=== PATIENT | male | born 1980 | race Caucasian/White ===

== ENCOUNTER 2019-11-17 20:25 | Emergency (ER) | payer OTHER ==
[2019-11-17 20:32] VITALS: BP 164/99
--- NOTE | 2019-11-17 20:38 | ED Physician Documentation ---
PD HPI BACK PAIN - Stated complaint Stated Complaint: BACK PX - Chief complaint Chief Complaint: Back Pain - History obtained from History obtained from: Patient - History of Present Illness Timing - onset: Yesterday Timing - details: Gradual onset, Waxing and waning Pain level now: 6 Location: Right Quality: Pain, Spasm Associated symptoms: No: Fever, Weakness, Numbness, Incontinent of urine Improves with: Rest Worsened by: Movement Recently seen: Not recently seen - Additional information Additional information: c/o right and mid lower back pain radiating to posterior aspect of right proximal thigh. Worse with movement. denies injury. Has had similar episodes before. Moved from [place] few weeks ago. Was seen in an ED in [place] a few months ago for same problem, had xrays at that time. Review of Systems Constitutional: denies: Fever, Chills, Sweats : denies: Unable to Void, Incontinent Skin: denies: Rash Musculoskeletal: reports: Back pain. denies: Neck pain, Extremity pain, Pain with weight bearing Neurologic: denies: Focal weakness, Numbness PD PAST MEDICAL HISTORY - Past Medical History Past Medical History: Yes Cardiovascular: Hypertension, High cholesterol Endocrine/Autoimmune: Type 1 diabetes - Present Medications Home Medications: Ambulatory Orders Medication Instructions Recorded Confirmed Cyclobenzaprine [Flexeril] 10 mg PO TID PRN #20 tablet 11/17/19 Hydrocodone/Acetaminophen 1 - 2 each PO Q6H PRN #14 tablet 11/17/19 [Hydrocodon-Acetaminophen 5-325] - Living Situation Living Arrangement: reports: At home PD ED PE NORMAL - Vitals Vital signs reviewed: Yes - General General: Alert and oriented X 3, No acute distress, Well developed/nourished - Cardiac Cardiac: RRR, No murmur - Respiratory Respiratory: No respiratory distress, Clear bilaterally - Derm Derm: Normal color, Warm and dry, No rash - Extremities Extremities: No tenderness to palpate, Normal ROM s pain, No edema, No calf tenderness / cord - Neuro Neuro: Alert and oriented X 3, No motor deficit, No sensory deficit, Other (2+/4 DTR bilateral patella without clonus) Results - Vitals Vitals: Vital Signs - 24 hr 11/17/19 20:29 Temperature 36.4 C L Heart Rate 78 Respiratory 16 Rate Blood Pressure 164/99 H O2 Saturation 95 Oxygen O2 Source Room air PD MEDICAL DECISION MAKING - ED course Complexity details: considered differential, d/w patient ED course: emergent testing not indicated at this time for this atraumatic, positional LBP with no red flags (no fever, weakness, numbness, difficulty urinating or defecating). Departure - Departure Disposition: , Self Care Clinical Impression: Sciatica Condition: Good Instructions: ED Sciatica Prescriptions: Cyclobenzaprine [Flexeril] 10 mg PO TID PRN #20 tablet PRN Reason: Spasms Hydrocodone/Acetaminophen [Hydrocodon-Acetaminophen 5-325] 1 - 2 each PO Q6H PRN #14 tablet PRN Reason: pain Comments: Follow up with your doctor, call to arrange for next available appointment
[2019-11-17] MEDS ORDERED: CYCLOBENZAPRINE 10 MG TABLET PO STA (20:58)
[2019-11-17] MEDS ORDERED: KETOROLAC 60 MG/2 ML VIAL IM STA (20:58)
[2019-11-17] MEDS ORDERED: HYDROcod/ACETAM 5/325 MG TABLET PO STA (20:59)
== END 2019-11-17 21:33 | disposition home or self-care (01) ==
LOC: ED 20:25
DX: M54.30 Sciatica, unspecified side (principal); I10 Essential (primary) hypertension; E10.9 Type 1 diabetes mellitus without complications
CPT/HCPCS: 96372; 99283; 99284; A9270

== ENCOUNTER 2019-12-14 14:49 | Emergency (ER) | payer OTHER ==
--- NOTE | 2019-12-14 15:15 | ED Physician Documentation ---
History of Present Illness - Stated complaint Stated Complaint: COUGH, VOMITTING,HEADACHE - Chief complaint Chief Complaint: Resp - History obtained from History obtained from: Patient - History of Present Illness Timing: Yesterday Pain level max: 4 Pain level now: 3 - Additonal information Additional information: Patient is a 39-year-old male with a history of diabetes. He states that he does not smoke. He started feeling ill yesterday. States that today he has had vomiting, headache and generally feeling unwell. Has never used inhalers. No recent travel. No recent antibiotics. Review of Systems Ten Systems: 10 systems reviewed and negative Constitutional: reports: Chills. denies: Fever Nose: denies: Rhinorrhea / runny nose, Congestion Throat: denies: Sore throat Respiratory: reports: Cough GI: reports: Vomiting Skin: denies: Rash Musculoskeletal: denies: Neck pain, Back pain Neurologic: reports: Headache PD PAST MEDICAL HISTORY - Past Medical History Cardiovascular: Hypertension, High cholesterol Endocrine/Autoimmune: Type 1 diabetes - Present Medications Home Medications: Ambulatory Orders Medication Instructions Recorded Confirmed Cyclobenzaprine [Flexeril] 10 mg PO TID PRN #20 tablet 11/17/19 Hydrocodone/Acetaminophen 1 - 2 each PO Q6H PRN #14 tablet 11/17/19 [Hydrocodon-Acetaminophen 5-325] - Allergies Allergies/Adverse Reactions: Allergies Allergy/AdvReac Type Severity Reaction Status Date / Time No Known Drug Allergies Allergy Verified 12/14/19 14:56 PD ED PE NORMAL - Vitals Vital signs reviewed: Yes - General General: Alert and oriented X 3, No acute distress - HEENT HEENT: Moist mucous membranes - Neck Neck: Supple, no meningeal sign - Cardiac Cardiac: RRR, Strong equal pulses - Respiratory Respiratory: Other (Shallow respirations, crackles bilaterally) - Abdomen Abdomen: Soft, Non tender, Non distended - Derm Derm: Warm and dry, No rash - Extremities Extremities: No edema - Neuro Neuro: Alert and oriented X 3 - Psych Psych: Normal mood Results - Vitals Vitals: Vital Signs - 24 hr 12/14/19 12/14/19 12/14/19 14:56 15:27 15:30 Temperature 37.3 C Heart Rate 79 87 74 Respiratory 22 30 H 27 H Rate Blood Pressure 219/116 H 200/118 H O2 Saturation 82 L 95 99 12/14/19 17:02 Temperature Heart Rate 87 Respiratory 27 H Rate Blood Pressure 136/118 H O2 Saturation 100 Oxygen O2 Source Nasal cannula Oxygen Flow Rate 4 - Labs Labs: Laboratory Tests 12/14/19 12/14/19 12/14/19 15:25 15:25 15:25 WBC 11.1 H RBC 4.63 L Hgb 13.7 L Hct 42.6 MCV 92.0 MCH 29.6 MCHC 32.2 RDW 13.2 Plt Count 321 MPV 9.9 Neut # (Auto) 9.2 H Lymph # (Auto) 1.0 L [place] # (Auto) 0.7 Eos # (Auto) 0.1 Baso # (Auto) 0.0 Absolute Nucleated RBC 0.02 Nucleated RBC % 0.2 PT 13.7 H INR 1.2 APTT 30.7 D-Dimer Sodium 138 Potassium 3.8 Chloride 104 Carbon Dioxide 25 Anion Gap 9.0 BUN 12 Creatinine 0.8 Estimated GFR (MDRD) 108 Glucose 138 H Lactic Acid Calcium 8.6 Total Bilirubin 1.5 H AST 17 ALT 56 Alkaline Phosphatase 69 Lactate Dehydrogenase Total Protein 7.6 Albumin 3.8 Globulin 3.8 Albumin/Globulin Ratio 1.0 Lipase 22 Urine Color Urine Clarity Urine pH Ur Specific [place] Urine Protein Urine Glucose (UA) Urine Ketones Urine Occult Blood Urine Nitrite Urine Bilirubin Urine Urobilinogen Ur Leukocyte Esterase Urine RBC Urine WBC Ur Squamous Epith Cells Urine Bacteria Ur Microscopic Review Urine Culture Comments Influenza A (Rapid) Influenza B (Rapid) 12/14/19 12/14/19 12/14/19 15:25 15:25 15:25 WBC RBC Hgb Hct MCV MCH MCHC RDW Plt Count MPV Neut # (Auto) Lymph # (Auto) [place] # (Auto) Eos # (Auto) Baso # (Auto) Absolute Nucleated RBC Nucleated RBC % PT INR APTT D-Dimer 290.2 H Sodium Potassium Chloride Carbon Dioxide Anion Gap BUN Creatinine Estimated GFR (MDRD) Glucose Lactic Acid 1.2 Calcium Total Bilirubin AST ALT Alkaline Phosphatase Lactate Dehydrogenase Total Protein Albumin Globulin Albumin/Globulin Ratio Lipase Urine Color Urine Clarity Urine pH Ur Specific [place] Urine Protein Urine Glucose (UA) Urine Ketones Urine Occult Blood Urine Nitrite Urine Bilirubin Urine Urobilinogen Ur Leukocyte Esterase Urine RBC Urine WBC Ur Squamous Epith Cells Urine Bacteria Ur Microscopic Review Urine Culture Comments Influenza A (Rapid) Negative Influenza B (Rapid) Negative 12/14/19 12/14/19 15:25 16:12 WBC RBC Hgb Hct MCV MCH MCHC RDW Plt Count MPV Neut # (Auto) Lymph # (Auto) [place] # (Auto) Eos # (Auto) Baso # (Auto) Absolute Nucleated RBC Nucleated RBC % PT INR APTT D-Dimer Sodium Potassium Chloride Carbon Dioxide Anion Gap BUN Creatinine Estimated GFR (MDRD) Glucose Lactic Acid Calcium Total Bilirubin AST ALT Alkaline Phosphatase Lactate Dehydrogenase 194 Total Protein Albumin Globulin Albumin/Globulin Ratio Lipase Urine Color YELLOW Urine Clarity CLEAR Urine pH 6.5 Ur Specific [place] 1.015 Urine Protein 100 H Urine Glucose (UA) NEGATIVE Urine Ketones NEGATIVE Urine Occult Blood NEGATIVE Urine Nitrite NEGATIVE Urine Bilirubin NEGATIVE Urine Urobilinogen 0.2 (NORMAL) Ur Leukocyte Esterase NEGATIVE Urine RBC 0-5 Urine WBC 0-3 Ur Squamous Epith Cells NONE SEEN Urine Bacteria None Seen Ur Microscopic Review INDICATED Urine Culture Comments NOT INDICATED Influenza A (Rapid) Influenza B (Rapid) - Rads (name of study) cxr Radiology: Prelim report reviewed, EMP read contemporaneously, See rad report (1. Low lung volumes. 2. Patchy areas of groundglass type density in the left lung, concerning for infection. ) PD MEDICAL DECISION MAKING - ED course Complexity details: reviewed results, re-evaluated patient, considered differential, d/w patient ED course: 39-year-old male with what appears to be likely coronavirus, covid 19 infection. He has hypoxic been maintained on 4 L of oxygen via nasal cannula. I discussed the case with our hospitalist and editor in chief newspaper here, currently we do not have any ventilators available if the patient should deteriorate, therefore we will try to transfer the patient. I discussed the case with Dr. Latoya Baird , hospitalist at [facility] who graciously accepts in transfer. Patient will be transferred for further care. This document was made in part using voice recognition software. While efforts are made to proofread this document, sound alike and grammatical errors may occur. Departure - Departure Disposition: 02 Transfer Acute Care Hosp Clinical Impression: Hypoxia, COVID-19 Condition: Stable
[2019-12-14] MEDS ORDERED: SODIUM CHLORIDE 0.9% 1,000 ML IV ONE (15:18)
[2019-12-14] MEDS ORDERED: SODIUM CHLORIDE 0.9% 500 ML IV ONE (15:18)
[2019-12-14 15:33] LABS: BASOPHILS % (AUTO) 0.3 %; EOSINOPHILS # (AUTO) 0.1 10^3/uL (0.0-0.7); EOSINOPHILS % (AUTO) 0.5 %; HGB - HEMOGLOBIN 13.7 g/dL (14.0-18.0); LYMPHOCYTES % (AUTO) 9.3 %; MEAN CORPUSCULAR HEMOGLOBIN 29.6 pg (27.0-31.0); MEAN CORPUSCULAR HGB CONC 32.2 g/dL (32.0-36.0); MEAN PLATELET VOLUME 9.9 fL (7.4-11.4); MONOCYTES # (AUTO) 0.7 10^3/uL (0.0-1.0); MONOCYTES % (AUTO) 6.5 %; NEUTROPHILS # (AUTO) 9.2 10^3/uL (1.5-6.6); NEUTROPHILS % (AUTO) 82.6 %; PLT - PLATELET COUNT 321 10^3/uL (130-450); RED BLOOD COUNT 4.63 10^6/uL (4.70-6.10); RED CELL DISTRIBUTION WIDTH 13.2 % (12.0-15.0); WHITE BLOOD COUNT 11.1 x10^3/uL (4.8-10.8)
[2019-12-14 15:41] LABS: INR 1.2 (0.8-1.2); PT - PROTHROMBIN TIME 13.7 secs (9.9-12.6)
[2019-12-14 15:46] LABS: ALBUMIN 3.8 g/dL (3.2-5.5); BILIRUBIN,TOTAL 1.5 mg/dL (0.2-1.0); CALCIUM 8.6 mg/dL (8.5-10.3); CREATININE 0.8 mg/dL (0.6-1.2); TOTAL PROTEIN 7.6 g/dL (6.7-8.2)
[2019-12-14 15:48] LABS: PARTIAL THROMBOPLASTIN TIME 30.7 secs (24.9-33.3)
--- NOTE | 2019-12-14 16:13 | XRAY Report ---
Reason: cough, hypoxia Procedure Date: 12/14/2019 Accession Number: [id number] / [id number] Procedure: XR - Chest 1 View X-Ray CPT Code: 17135 Final Report FULL RESULT: EXAM: CHEST RADIOGRAPHY EXAM DATE: 12/14/2019 03:38 PM. CLINICAL HISTORY: Cough, hypoxia. COMPARISON: None available. TECHNIQUE: 1 view. FINDINGS: Lungs/Pleura: The lung volumes are low and there is mild bibasilar atelectasis. There are patchy areas of groundglass type density, mostly in the mid to lower left lung. No pneumothorax or large pleural effusion. Mediastinum: Within exam limitations, the cardiomediastinal contour is normal. Other: None. IMPRESSION: 1. Low lung volumes. 2. Patchy areas of groundglass type density in the left lung, concerning for infection. [facility]
[2019-12-14 16:26] LABS: BILIRUBIN,URINE NEGATIVE (NEGATIVE); GLUCOSE, URINE (UA) NEGATIVE (NEGATIVE); KETONES,URINE (UA) NEGATIVE (NEGATIVE); LEUKOCYTE ESTERASE, URINE NEGATIVE (NEGATIVE); NITRITE,URINE NEGATIVE (NEGATIVE); OCCULT BLOOD,URINE NEGATIVE (NEGATIVE); PH,URINE 6.5 PH (5.0-7.5); PROTEIN,URINE 100 mg/dL (NEGATIVE); UROBILINOGEN,URINE 0.2 (NORMAL) E.U./dL (NORMAL)
[2019-12-14 16:29] LABS: CLARITY,URINE CLEAR (CLEAR)
[2019-12-14 16:38] LABS: BACTERIA,URINE None Seen /HPF (None Seen); RBC,URINE 0-5 /HPF (0-5); SQUAMOUS EPITHELIAL CELL,UR NONE SEEN (<= Few)
[2019-12-14 18:59] VITALS: BP 198/110
== END 2019-12-14 19:10 | disposition short-term general hospital (02) ==
LOC: ED 14:49
DX: J98.8 Other specified respiratory disorders (principal); B97.29 Other coronavirus as the cause of diseases classified elsewhere; R09.02 Hypoxemia; I10 Essential (primary) hypertension; E10.9 Type 1 diabetes mellitus without complications
CPT/HCPCS: 36415; 71045; 80053; 81001; 81003; 83605; 83615; 83690; 85025; 85379; 85610; 85730; 87040; 87086; 87275; 87276; 96360; 99284

== ENCOUNTER 2021-01-02 12:10 | Emergency (ER) | payer BC, OTHER ==
--- NOTE | 2021-01-02 12:29 | ED Physician Documentation ---
PD HPI CHEST PAIN - Stated complaint Stated Complaint: CHEST PX - Chief complaint Chief Complaint: Cardiac - History obtained from History obtained from: Patient - History of Present Illness Timing - onset: Enter time (1120), Today Timing - onset during: Light activity Timing - duration: Hours Timing - details: Abrupt onset, Still present Pain level max: 6 Pain level now: 6 Quality: Pressure, Sharp Location: Substernal Radiation: No: Jaw, Neck, Back, Abdominal, Left upper extremity, Right upper extremity Improved by: Rest Associated symptoms: Nausea. No: Shortness of air, Diaphoresis, Vomiting, Feeling faint / dizzy, General Weakness, Palpitations, Cough Similar symptoms before: Diagnosis (The patient reports an [facility] diagnosed in [place] 4 years ago he did not have stents placed.) Recently seen: Not recently seen - Additional information Additional information: 40-year-old male awoke this morning with central chest pain he did not have diaphoresis with this he did have slight nausea he denied any cough or radiation of the pain. He has had a much worse pain previously with [facility] when he was living in [place] 4 years ago. He recalls at that time being told he had a heart attack he states they looked in his heart and did not find anything. He does not have stents in place. 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 Review of Systems Constitutional: denies: Fever Eyes: denies: Decreased vision Ears: denies: Ear pain Nose: denies: Congestion Throat: denies: Sore throat Cardiac: reports: Chest pain / pressure. denies: Palpitations, Pedal edema, Calf pain Respiratory: denies: Dyspnea, Cough GI: denies: Abdominal Pain, Abdominal Swelling, Nausea, Vomiting : denies: Dysuria, Frequency Skin: denies: Rash Musculoskeletal: denies: Neck pain, Back pain, Extremity pain Neurologic: denies: Generalized weakness, Focal weakness, Numbness PD PAST MEDICAL HISTORY - Past Medical History Cardiovascular: Hypertension, High cholesterol Endocrine/Autoimmune: Type 1 diabetes - Past Surgical History Past Surgical History: No - Present Medications Home Medications: Ambulatory Orders Medication Instructions Recorded Confirmed Atorvastatin [Lipitor] 40 mg PO HS 01/02/21 01/02/21 Insulin Glargine [Lantus Solostar] 40 unit SQ HS 01/02/21 01/02/21 Losartan Potassium [Cozaar] 100 mg PO DAILY 01/02/21 01/02/21 Metformin HCl [Glucophage] 1,000 mg PO BID 01/02/21 01/02/21 Metoprolol Succinate [Toprol Xl] 50 mg PO DAILY 01/02/21 01/02/21 NIFEdipine [Procardia] 30 mg PO DAILY 01/02/21 01/02/21 - Allergies Allergies/Adverse Reactions: Allergies Allergy/AdvReac Type Severity Reaction Status Date / Time No Known Drug Allergies Allergy Verified 01/02/21 12:12 - Social History Does the pt smoke?: No Smoking Status: Never smoker Does the pt drink ETOH?: No Does the pt have substance abuse?: No - Immunizations Immunizations are current?: Yes - POLST Patient has POLST: No PD ED PE NORMAL - Vitals Vital signs reviewed: Yes (Hypertensive) - General General: Alert and oriented X 3, No acute distress, Well developed/nourished - HEENT HEENT: Atraumatic, PERRL, EOMI - Neck Neck: Supple, no meningeal sign - Cardiac Cardiac: RRR, No murmur, Other (There is central chest wall point tenderness to palpation reproducing the symptoms the patient is experiencing.) - Respiratory Respiratory: No respiratory distress, Clear bilaterally - Abdomen Abdomen: Soft, Non tender - Back Back: No CVA TTP, No spinal TTP - Derm Derm: Normal color, Warm and dry, No rash - Extremities Extremities: No deformity, No edema - Neuro Neuro: Alert and oriented X 3, marketing assistant manager 2-12 intact, No motor deficit, No sensory deficit, Normal speech Eye Opening: Spontaneous Motor: Obeys Commands Verbal: Oriented GCS Score: 15 - Psych Psych: Normal mood, Normal affect Results - Vitals Vitals: Vital Signs - 24 hr 01/02/21 01/02/21 01/02/21 12:13 12:45 13:15 Temperature 36.7 C Heart Rate 93 92 99 Respiratory 19 22 16 Rate Blood Pressure 179/104 H 169/106 H 144/80 H O2 Saturation 100 96 98 01/02/21 01/02/21 01/02/21 13:30 13:53 14:00 Temperature Heart Rate 99 91 91 Respiratory 18 18 Rate Blood Pressure 159/89 H 139/80 H 140/93 H O2 Saturation 98 98 Oxygen O2 Source Room air - EKG (time done) 1213 Rhythm: LAE QRS: LVH Ischemia: ST elevation c/w ischemia (V1-4) Compare to prior EKG: Old EKG unavailable Computer interpretation: Agree with computer - Labs Labs: Laboratory Tests 01/02/21 01/02/21 01/02/21 12:32 12:32 12:32 WBC 8.3 RBC 4.93 Hgb 15.2 Hct 44.1 MCV 89.5 MCH 30.8 MCHC 34.5 RDW 13.1 Plt Count 292 MPV 10.1 Neut # (Auto) 5.6 Lymph # (Auto) 1.5 [place] # (Auto) 0.7 Eos # (Auto) 0.5 Baso # (Auto) 0.0 Absolute Nucleated RBC 0.00 Nucleated RBC % 0.0 Sodium 134 L Potassium 3.9 Chloride 99 L Carbon Dioxide 24 Anion Gap 11.0 BUN 19 Creatinine 0.8 Estimated GFR (MDRD) 108 Glucose 213 H Calcium 9.1 Total Bilirubin 0.5 AST 24 ALT 42 Alkaline Phosphatase 98 Troponin I High Sens 23.2 H* Total Protein 7.9 Albumin 3.8 Globulin 4.1 Albumin/Globulin Ratio 0.9 L Lipase 39 - Rads (name of study) chest Radiology: Prelim report reviewed (Impression: Slightly low lung volumes without other evidence to suggest an acute cardiopulmonary abnormality.), EMP read indepedently, See rad report PD MEDICAL DECISION MAKING - ED course Complexity details: reviewed old records, reviewed results, re-evaluated patient , considered differential, d/w patient ED course: 40-year-old male relates a history of an [facility] 4 years ago in [place] without stent placement and without findings on angiogram. He presents today with central chest pain without radiation and he has a tender chest wall reproducing the pain he is experiencing. His electrocardiogram is concerning for ST elevation in V1 2 and 3. There are no reciprocal changes. There does appear to be LVH. The patient is administered cardiac protocol heparin aspirin nitroglycerin paste and metoprolol. There is minimal elevation in the troponin and concern for infarction is heightened. The emergency department physician Dr. Zavala at [facility] is consulted in the case will accept the patient in transfer. Departure - Departure Disposition: 02 Transfer Acute Care Hosp Clinical Impression: STEMI (ST elevation myocardial infarction) Qualifiers: Involved coronary artery: unspecified coronary artery Qualified Code(s): I21.3 - ST elevation (STEMI) myocardial infarction of unspecified site Condition: Stable Discharge Date/Time: 01/02/21 14:08
--- OUTSIDE RECORDS SUMMARY | 2021-01-02 12:38 | EXTERNAL MEDICAL SUMMARY RPT | Continuity of Care Document ---
:1980 Demographics Phone Unavailable Preferred Language Unknown Marital Status Unknown Oriental Orthodox Affiliation Unknown Race Unknown Ethnic Group Unknown Author Organization [place] Address [address] [id number] Phone Social History date description facility [phone]
[2021-01-02 12:40] LABS: BASOPHILS % (AUTO) 0.4 %; EOSINOPHILS # (AUTO) 0.5 10^3/uL (0.0-0.7); EOSINOPHILS % (AUTO) 5.9 %; HCT - HEMATOCRIT 44.1 % (42.0-52.0); HGB - HEMOGLOBIN 15.2 g/dL (14.0-18.0); LYMPHOCYTES # (AUTO) 1.5 10^3/uL (1.5-3.5); LYMPHOCYTES % (AUTO) 18.5 %; MEAN CORPUSCULAR HEMOGLOBIN 30.8 pg (27.0-31.0); MEAN CORPUSCULAR HGB CONC 34.5 g/dL (32.0-36.0); MEAN CORPUSCULAR VOLUME 89.5 fL (80.0-94.0); MEAN PLATELET VOLUME 10.1 fL (7.4-11.4); MONOCYTES # (AUTO) 0.7 10^3/uL (0.0-1.0); MONOCYTES % (AUTO) 7.8 %; NEUTROPHILS # (AUTO) 5.6 10^3/uL (1.5-6.6); NEUTROPHILS % (AUTO) 66.9 %; PLT - PLATELET COUNT 292 10^3/uL (130-450); RED BLOOD COUNT 4.93 10^6/uL (4.70-6.10); RED CELL DISTRIBUTION WIDTH 13.1 % (12.0-15.0); WHITE BLOOD COUNT 8.3 x10^3/uL (4.8-10.8)
[2021-01-02] MEDS ORDERED: NITROGLYCERIN 2% PASTE TOP STA (12:43)
--- NOTE | 2021-01-02 12:48 | XRAY Report ---
PROCEDURE: Chest 1 View X-Ray INDICATIONS: Chest pain TECHNIQUE: One view of the chest was acquired. COMPARISON: 12/14/2019 FINDINGS: Surgical changes and devices: Overlying EKG wires. Lungs and pleura: Slightly low lung volumes without focal consolidation, pneumothorax, or pleural eff usion. Mediastinum: Mediastinal contours appear normal. Heart size is normal. Bones and chest wall: No suspicious bony lesions. Overlying soft tissues appear unremarkable. IMPRESSION: Slightly low lung volumes without other evidence to suggest an acute cardiopulmonary abnormality. Reviewed by: Sherwin Castrejon DO on 01/02/2021 11:47 AM [facility] Approved by: Sherwin Castrejon DO on 01/02/2021 11:47 AM [facility] Station ID: [id number]
[2021-01-02 12:58] LABS: ALBUMIN 3.8 g/dL (3.2-5.5); ALBUMIN/GLOBULIN RATIO 0.9 (1.0-2.2); BILIRUBIN,TOTAL 0.5 mg/dL (0.2-1.0); CALCIUM 9.1 mg/dL (8.5-10.3); CREATININE 0.8 mg/dL (0.6-1.2); POTASSIUM 3.9 mmol/L (3.5-5.0); TOTAL PROTEIN 7.9 g/dL (6.7-8.2)
[2021-01-02] MEDS ORDERED: HEPARIN 25000UNITS/500ML (D5W) 25,000 UNIT/500 ML BAG IV SCH (13:00)
[2021-01-02] MEDS ORDERED: ASPIRIN CHEW 81 MG TABLET PO STA (13:41)
[2021-01-02] MEDS ORDERED: METOPROLOL 5 MG/5 ML VIAL IVP STA (13:41)
[2021-01-02 14:08] VITALS: BP 140/93
[2021-01-02 14:42] LABS: B. PARAPERTUSSIS- RESP PCR PAN NOT DETECTED; B. PERTUSSIS- RESP PCR PANEL NOT DETECTED; C. PNEUMONIAE- RESP PCR PANEL NOT DETECTED; CORONAVIRUS 229E-RESP PCR NOT DETECTED; CORONAVIRUS HKU1-RESP PCR NOT DETECTED; CORONAVIRUS NL63-RESP PCR NOT DETECTED; CORONAVIRUS OC43-RESP PCR NOT DETECTED; HUMAN METAPNEUMOVIRUS NOT DETECTED; INFLUENZA A- RESP PCR PANEL NOT DETECTED; INFLUENZA B - RESP PCR PANEL NOT DETECTED; M. PNEUMONIAE- RESP PCR PANEL NOT DETECTED; PARAINFLUENZA VIRUS 1 NOT DETECTED; PARAINFLUENZA VIRUS 2 NOT DETECTED; PARAINFLUENZA VIRUS 3 NOT DETECTED; PARAINFLUENZA VIRUS 4 NOT DETECTED; RHINOVIRUS/ENTEROVIRUS NOT DETECTED; RSV- RESP PCR PANEL NOT DETECTED; SARS-CoV-2 -RESP PCR PANEL NOT DETECTED
== END 2021-01-02 14:08 | disposition short-term general hospital (02) ==
LOC: ED 12:10
DX: I21.3 ST elevation (STEMI) myocardial infarction of unspecified site (principal); E10.9 Type 1 diabetes mellitus without complications; Z79.4 Long term (current) use of insulin; I10 Essential (primary) hypertension; Z20.822 Contact with and (suspected) exposure to COVID-19
CPT/HCPCS: 0202U; 36415; 71045; 80053; 83690; 84484; 85025; 93005; 96374; 96375; 99284; 99285; A9270

== ENCOUNTER 2021-03-24 10:09 | Outpatient (CLI) | payer BC ==
--- NOTE | 2021-03-24 11:31 | XRAY Report ---
PROCEDURE: Lumbar Spine 2 View INDICATIONS: LOW BACK PAIN TECHNIQUE: 2 views of the lumbar spine were acquired. COMPARISON: None. FINDINGS: Bones: 5 [id number] vertebrae are present. There is minimal retrolisthesis at L1-L2, L2-L3, L4 -L5, and L5-S1. There is mild disc space narrowing at L5-S1 with mild endplate sclerosis. Mild facet arthropathy also demonstrated at L5-S1. No vertebral body compression fractures. No suspicious bony lesions. Soft tissues: Overlying bowel gas pattern is normal. No suspicious soft tissue calcifications. IMPRESSION: 1. Minimal multilevel retrolisthesis throughout the lumbar spine. 2. Mild degenerative disc disease and facet arthropathy at L5-S1. Reviewed by: Alberto Silvestre MD on 03/24/2021 11:30 AM PDT Approved by: Alberto Silvestre MD on 03/24/2021 11:30 AM PDT Station ID: [id number]
== END 2021-03-24 23:59 | disposition home or self-care (01) ==
LOC: DI.N 10:09
PROVIDERS: ATTEND Family Medicine
DX: M51.37 Other intervertebral disc degeneration, lumbosacral region (principal); M47.817 Spondylosis without myelopathy or radiculopathy, lumbosacral region; M43.16 Spondylolisthesis, lumbar region; M43.17 Spondylolisthesis, lumbosacral region

== ENCOUNTER 2021-11-01 08:37 | Outpatient (CLI) | payer BC ==
--- NOTE | 2021-11-01 10:22 | XRAY Report ---
PROCEDURE: Knee 3 View LT INDICATIONS: L KNEE PX TECHNIQUE: 3 views of the left knee(s) were acquired. COMPARISON: None. FINDINGS: Bones: No fractures or dislocations. No suspicious bony lesions. Soft tissues: No joint effusion. No suspicious soft tissue calcifications. IMPRESSION: No acute fracture. No osseous lesion. If symptoms and/or clinical suspicion for patholog y continue, further assessment with repeat plain films, or advanced imaging (e.g., CT, MRI, or bone s can) is recommended for further assessment. Reviewed by: Burak Geronimo MD on 11/01/2021 10:20 AM [facility] Approved by: Burak Geronimo MD on 11/01/2021 10:20 AM [facility] Station ID: [id number]
--- NOTE | 2021-11-01 11:13 | XRAY Report ---
PROCEDURE: Foot 3 View LT INDICATIONS: L FOOT PX TECHNIQUE: 3 views of the foot were acquired. COMPARISON: None FINDINGS: Bones: No fractures or dislocations. No suspicious bony lesions. Small dorsal calcaneal bone spur. Soft tissues: No tibiotalar joint effusion. Achilles tendon appears normal. IMPRESSION: No fracture. No acute osseous lesion. If there are persistent symptoms or continued clinical concern for pathology, then repeat plain film radiographs (7-10 days) or advanced imaging (CT, MR, bone scan) should be considered for further evaluation. Reviewed by: Arline Watkins MD, PhD on 11/01/2021 11:12 AM PST Approved by: Arline Watkins MD, PhD on 11/01/2021 11:12 AM PST Station ID: [id number]
== END 2021-11-01 23:59 | disposition home or self-care (01) ==
LOC: DI.N 08:37
PROVIDERS: ATTEND Family Medicine
DX: M25.562 Pain in left knee (principal); M79.672 Pain in left foot

== ENCOUNTER 2022-01-10 10:15 | Outpatient (CLI) | payer BC ==
--- NOTE | 2022-01-10 14:38 | XRAY Report ---
PROCEDURE: Knee 2 View LT INDICATIONS: LEFT KNEE PAIN TECHNIQUE: 2 views of the left knee(s) were acquired. COMPARISON: 11/01/2021 FINDINGS: Bones: No fractures or dislocations. No suspicious bony lesions. Mild medial compartmental joint s pace narrowing noted bilaterally Soft tissues: No joint effusion. No suspicious soft tissue calcifications. IMPRESSION: Bilateral mild medial compartment joint space narrowing Reviewed by: Darin Dutta MD on 01/10/2022 1:37 PM [facility] Approved by: Darin Dutta MD on 01/10/2022 1:37 PM [facility] Station ID: [id number]
== END 2022-01-10 23:59 | disposition home or self-care (01) ==
LOC: DI.WOS 10:15
PROVIDERS: ATTEND Physician Assistant
DX: M25.862 Other specified joint disorders, left knee (principal)

== ENCOUNTER 2022-06-23 08:00 | Outpatient (CLI) | payer BC ==
--- NOTE | 2022-06-24 03:17 | XRAY Report ---
PROCEDURE: Chest 2 View X-Ray INDICATIONS: SOB TECHNIQUE: 2 views of the chest. COMPARISON: None. FINDINGS: Surgical changes and devices: None. Lungs and pleura: There are low lung volumes. Pulmonary vascular prominence is present consistent wit h pulmonary edema. There are medial bibasilar retrocardiac opacities consistent with atelectasis or c onsolidation. Mediastinum: There is widening of the mediastinal contours which may be due to low lung volumes. Hea rt size appears mildly enlarged. Bones and chest wall: No suspicious bony abnormalities. Soft tissues appear unremarkable. IMPRESSION: 1. Pulmonary edema and medial bibasilar atelectasis or consolidation. Reviewed by: Alberto Silvestre MD on 06/24/2022 3:16 AM PDT Approved by: Alberto Silvestre MD on 06/24/2022 3:16 AM PDT Station ID: [id number]
== END 2022-06-23 23:59 | disposition home or self-care (01) ==
LOC: DI.N 08:00
PROVIDERS: ATTEND Family Medicine
DX: J81.1 Chronic pulmonary edema (principal)

== ENCOUNTER 2022-06-23 18:35 | Outpatient (CLI) | payer BC | END 2022-06-23 18:36 | disposition home or self-care (01) | LOC: EMS 18:35 | DX: R07.89 Other chest pain (principal); R06.02 Shortness of breath; R91.8 Other nonspecific abnormal finding of lung field | CPT/HCPCS: A0425; A0427 ==

== ENCOUNTER 2023-06-07 19:15 | Emergency (ER) | payer BC ==
[2023-06-07 19:27] VITALS: BP 151/96; O2SAT 99
[2023-06-07] MEDS ORDERED: KETOROLAC 30 MG/ML VIAL IM STA (20:23)
[2023-06-07] MEDS ORDERED: methocarbamoL 500 MG TABLET PO STA (20:24)
--- NOTE | 2023-06-07 20:30 | ED Physician Documentation ---
History of Present Illness - Stated complaint Stated Complaint: BACK PX - Chief complaint Chief Complaint: Back Pain - History obtained from History obtained from: Patient - Additonal information Additional information: 43yM presents to the ED with R acute on chronic neck pain X 2weeks and R hip pain that is acute on chronic as well. denies numbness, weakness. patient has pain with ROM of hip. denies any injury but does have history of joint space narrowing as well as herniated discs and sciatica per partner PD PAST MEDICAL HISTORY - Past Medical History Past Medical History: Yes Cardiovascular: Hypertension, High cholesterol Endocrine/Autoimmune: Type 1 diabetes - Past Surgical History Past Surgical History: No - Present Medications Home Medications: Ambulatory Orders Medication Instructions Recorded Confirmed Atorvastatin [Lipitor] 40 mg PO HS 01/02/21 01/02/21 Insulin Glargine [Lantus Solostar] 40 unit SQ HS 01/02/21 01/02/21 Losartan Potassium [Cozaar] 100 mg PO DAILY 01/02/21 01/02/21 Metformin HCl [Glucophage] 1,000 mg PO BID 01/02/21 01/02/21 Metoprolol Succinate [Toprol Xl] 50 mg PO DAILY 01/02/21 01/02/21 methocarbamoL [Robaxin] 500 mg PO Q6H PRN #10 tablet 06/07/23 - Allergies Allergies/Adverse Reactions: Allergies Allergy/AdvReac Type Severity Reaction Status Date / Time No Known Drug Allergies Allergy Verified 06/07/23 19:26 - Social History Does the pt smoke?: No Smoking Status: Never smoker Does the pt drink ETOH?: No Does the pt have substance abuse?: No - Immunizations Immunizations are current?: Yes - POLST Patient has POLST: No PD ED PE NORMAL - Vitals Vital signs reviewed: Yes - General General: Alert and oriented X 3, No acute distress, Well developed/nourished - HEENT HEENT: Atraumatic, PERRL, EOMI, Moist mucous membranes, Pharynx benign - Neck Neck: Supple, no meningeal sign, Other (R neck discomfort to palpation in muscle distribution. FROM of neck) - Cardiac Cardiac: RRR - Respiratory Respiratory: No respiratory distress, Clear bilaterally - Abdomen Abdomen: Non tender, Non distended - Derm Derm: Normal color, Warm and dry - Extremities Extremities: No deformity, Other (R hip discomfort with rom. ambulatory without difficulty. 2+ BL DP pulses. normal sensation and strength) - Neuro Neuro: Alert and oriented X 3 Results - Vitals Vitals: Vital Signs - 24 hr 06/07/23 19:20 Temperature 36.7 C Heart Rate 94 Respiratory 17 Rate Blood Pressure 151/96 H O2 Saturation 99 Oxygen O2 Source Room air PD Medical Decision Making - ED course ED course: 43yM presents with acute on chronic back pain and hip pain. sensorineural exam was benign. no signs/symptoms of cord compression. no midline back pain, no fevers, no incontinence, no fnd. symptomatic care provided. return precautions given. plan to f/u with pcp. Departure - Departure Disposition: Home, Self Care Clinical Impression: Back pain, Neck pain, Hip pain Condition: Stable Instructions: Exercise Lower Body Hip Flexor Prescriptions: methocarbamoL [Robaxin] 500 mg PO Q6H PRN #10 tablet PRN Reason: Pain 5-7 Comments: You were seen in the emergency department for Neck and hip pain. Electronic prescription sent to [facility] in [place]. Please follow-up with your primary care provider and return to the emergency department if you have any new or worsening symptoms or other concerns. Forms: Activity restrictions
== END 2023-06-07 20:54 | disposition home or self-care (01) ==
LOC: ED 19:15
DX: M54.2 Cervicalgia (principal); M25.551 Pain in right hip; M54.9 Dorsalgia, unspecified; I10 Essential (primary) hypertension; E10.9 Type 1 diabetes mellitus without complications; Z79.4 Long term (current) use of insulin
CPT/HCPCS: 96372; 99283; A9270